=== PATIENT | female | born 1950 | race Caucasian/White ===

== ENCOUNTER 2022-10-10 06:21 | Inpatient (IN) ==
--- NOTE | 2022-09-21 14:16 | PAT Medication Instructions ---
Medication Instructions Date of Service September 21, 2022 Home Medications Medication Instructions Recorded amoxicillin 500 mg tablet 2,000 mg PO ONCE #4 tabs 11/24/21 amoxicillin 500 mg tablet 2,000 mg PO ONCE acetaminophen 650 mg tablet,extended release 1,300 mg PO Q8 allopurinol 300 mg tablet 300 mg PO HS coQ10 (ubiquinol) 200 mg capsule 200 mg PO QAM furosemide 20 mg tablet 20 mg PO QAM levothyroxine 137 mcg capsule 137 mcg PO QAM lisinopril 30 mg tablet 30 mg PO QAM metformin 500 mg tablet 1,000 mg PO BIDM multivitamin 1 tab PO QAM simvastatin 10 mg tablet 10 mg PO HS spironolactone 25 mg tablet 25 mg PO QAM verapamil 240 mg tablet,extended release 240 mg PO BID Continue as directed amoxicillin 500 mg tablet 2,000 mg PO ONCE STOP taking 2 weeks before surgery (or as soon as possible if surgery is within 2 weeks) coQ10 (ubiquinol) 200 mg capsule 200 mg PO QAM DO NOT take the morning of surgery furosemide 20 mg tablet 20 mg PO QAM lisinopril 30 mg tablet 30 mg PO QAM metformin 500 mg tablet 1,000 mg PO BIDM multivitamin 1 tab PO QAM spironolactone 25 mg tablet 25 mg PO QAM Take morning of surgery With a small sip of water, OTHERWISE NOTHING TO EAT OR DRINK AFTER MIDNIGHT: acetaminophen 650 mg tablet,extended release 1,300 mg PO Q8 levothyroxine 137 mcg capsule 137 mcg PO QAM verapamil 240 mg tablet,extended release 240 mg PO BID Take evening before surgery acetaminophen 650 mg tablet,extended release 1,300 mg PO Q8 allopurinol 300 mg tablet 300 mg PO HS metformin 500 mg tablet 1,000 mg PO BIDM simvastatin 10 mg tablet 10 mg PO HS verapamil 240 mg tablet,extended release 240 mg PO BID Other Notes If you have any questions please call us at [phone] or [phone] or [phone] or [phone]
--- NOTE | 2022-09-26 10:40 | Anesthesiology Consultation ---
Date of Service September 26, 2022 Assessment & Plan (1) Encounter for pre-operative examination: - Check BSG AM DOS - COVID screening: Per assessment on 09/26: No known COVID-19 positive contacts or current COVID-19 related symptoms. Travel screen negative. Patient vaccinated. At surgeon discretion if preop Covid testing being done. - Outpatient joint assessment: Pt currently scheduled for inpatient pathway. If surgeon requests review for outpatient joint pathway, patient is not recommended candidate for outpatient joint program from anesthesia standpoint. Chart Review Chart Review: Acceptable Risk for Surgery and Patient seen in Pre Admission Testing Teaching & Discussion Pre-Anesthesia Teaching/Discussion Notes: Instructed NPO after midnight before surgery,except medications with 15 cc of water. Medication instructions provided according to the PAT guidelines. History Surgery Operation Date: 10/10/22 10:40 Proposed Procedures p Left Total Hip Arthroplasty - Kwasi Hirsch MD Height/Weight Height: 5 ft 2 in Weight: 106.7 kg Allergies Allergy/AdvReac Type Severity Reaction Status Date / Time atenolol AdvReac Mild MUSCLE Verified 09/21/22 10:36 ACHES Medications Home Medications Medication Instructions Recorded Confirmed Last Taken amoxicillin 500 mg tablet 2,000 mg PO ONCE #4 tabs 11/24/21 09/21/22 Unknown acetaminophen 650 mg 1,300 mg PO Q8 09/21/22 09/21/22 Unknown tablet,extended release allopurinol 300 mg tablet 300 mg PO HS 09/21/22 09/21/22 Unknown coQ10 (ubiquinol) 200 mg capsule 200 mg PO QAM 09/21/22 09/21/22 Unknown furosemide 20 mg tablet 20 mg PO QAM 09/21/22 09/21/22 Unknown levothyroxine 137 mcg capsule 137 mcg PO QAM 09/21/22 09/21/22 Unknown lisinopril 30 mg tablet 30 mg PO QAM 09/21/22 09/21/22 Unknown metformin 500 mg tablet 1,000 mg PO BIDM 09/21/22 09/21/22 Unknown multivitamin 1 tab PO QAM 09/21/22 09/21/22 Unknown simvastatin 10 mg tablet 10 mg PO HS 09/21/22 09/21/22 Unknown spironolactone 25 mg tablet 25 mg PO QAM 09/21/22 09/21/22 Unknown verapamil 240 mg tablet,extended 240 mg PO BID 09/21/22 09/21/22 Unknown release Past Medical History Medical History Diabetes mellitus, type 2 Gout History of kidney stones Hyperlipidemia Hypertension Hypothyroidism Morbid obesity with BMI of 40.0-44.9, adult Osteoarthritis Sleep apnea CPAP (compliant) Exercise / Class Metabolic Activity III < 4 Walking/Shop/Light housework (uses 2 canes or walker ) Past Family History Family History Other No family history of adverse response to anesthesia Past Surgical History Surgical History History of colonoscopy History of ear surgery right ear laser surgery History of hysterectomy with bilateral oophorectomy History of left breast biopsy benign (marker in place) History of total right hip replacement History of wisdom tooth extraction Past Anesthesia History No Hx of Anesthesia Complications and No Family Hx of Anesthesia Complications History of PONV No Hx of PONV and Hx of Motion Sickness (+ boats) Social History Smoking Status: Never smoker Do You Dip or Chew Tobacco: No Hx Alcohol Use: No Hx Substance Use: No substance use type: does not use Review of Systems Patient denies chest pain, shortness of breath, fever, chills, cough, wheezing, palpitations. Physical Exam Vital Signs VITALS BP 155/87 P 82 TEMP 98.9 SP02 95%RA RESP 18 PHYSICAL Full cervical extension range of motion. Full TMJ range of motion. TMD 4 finger breaths Mallampati Score 3 (macroglossia) Dentition: missing molars, + several crowns Lungs: clear throughout to auscultation Cardiac: regular rate and rhythm, no murmurs noted Spine: normal Carotid arteries: negative bruit Extremities: no LE edema Lab Results Anesthesia Preop Results Results Anesthesia Widget: WBC 7.44 K/ul (4.8-10.8) 09/20/22 Hgb 13.5 g/dl (12.0-16.0) 09/20/22 Hct 40.2 % (37.0-47.0) 09/20/22 Plt 332 K/uL (130-400) 09/20/22 Na 135 mmol/L (136-145) L 09/26/22 K 3.9 mmol/L (3.5-5.1) 09/26/22 Cl 96 mmol/L (98-107) L 09/26/22 CO2 31 mmol/L (21-32) 09/26/22 BUN 10 mg/dl (6-23) 09/26/22 Creat 0.59 mg/dl (0.6-1.2) L 09/26/22 Glucose Level 130 mg/dl (70-99(Fasting)) H 09/26/22 PT 10.5 Seconds (9.0-12.0) 09/26/22 PTT 26.7 Seconds (21.0-31.0) 09/26/22 INR 1.0 (0.9-1.1) 09/26/22 HA1c 7.2 % (4.5-5.6) H 09/26/22 Blood Type O Positive 09/26/22 Antibody Screen NEGATIVE 09/26/22 Testing Electrocardiogram Date: 09/26/22 NSR at 76bpm. Chest X-Ray Date: 09/26/22 FINDINGS: Small linear densities at the left lung base persist and favor scarring. Otherwise, the lungs are clear. The heart is normal in size. No pleural effusions. No pneumothorax. Degenerative changes noted within the thoracic spine and shoulders. IMPRESSION: No acute process. COVID-19 Risk Screen Screening Information COVID-19 Screen Date: 09/26/22 Exposure 21 Days Family/Household +COVID Last 21 Days: No Exposure 10 Days Any COVID Exposure Last 10 Days: No Symptoms Last 10 Days Experienced COVID Sx Last 10 Days: No + COVID 0-90 Days COVID + in Last 0-90 Days: No
[~2022-10-10 06:21] MED LIST: ACETAMINOPHEN 500 MG TAB PO SCH; BUPIVACAINE LIPOSOME/PF 266 MG, BUPIVACAINE/EPINEPHRINE 50 ML, SODIUM CHLORIDE 0.9% PF ... INFIL SCH; CeleBREX 200 MG CAP PO SCH; FAMOTIDINE 20 MG TAB PO SCH; LR 500ML BOLUS, THEN 15ML/HR IV SCH; LR 60ML/HR IV SCH; METOCLOPRAMIDE HCL 10 MG TABLET PO SCH; TRANEXAMIC ACID 1,000 MG **IV Pre-op IV SCH; ceFAZolin 2000MG 2,000 MG/15 ML SYR IV SCH
[2022-10-10] MEDS ORDERED: BUPIVACAINE 0.5 % 5 MG/1 ML PF 10ML VIAL ONE (06:30)
--- NOTE | 2022-10-10 06:57 | History & Physical Bridge Note ---
Date of Service October 10, 2022 History & Physical Bridge Note I have examined the patient, reviewed the History & Physical and in the interval since the performance of the History & Physical I have noted the following changes of clinical significance: no changes noted
[2022-10-10] MEDS ORDERED: MIDAZOLAM HCL 1 MG/ML 2ML VIAL ONE (07:40)
[2022-10-10] MEDS ORDERED: LIDOCAINE 2% 2 ML VIAL/AMP(20MG/ML) INFIL ONE (07:40)
[2022-10-10] MEDS ORDERED: KETAMINE 50 MG/5 ML SYRINGE ONE (07:40)
[2022-10-10] MEDS ORDERED: PROPOFOL IV EMULSION 10 MG/ML 20 ML VIAL IV ONE ×3 (07:40→09:47)
[2022-10-10] MEDS ORDERED: ATROPINE SULFATE 0.1 MG/ML 10ML SYR IV PRN (08:01)
[2022-10-10] MEDS ORDERED: fentaNYL citrate PF 100 MCG/2 ML VIAL IV PRN (08:01)
[2022-10-10] MEDS ORDERED: ONDANSETRON INJ 2 MG/ML 2 ML VIAL IV PRN ×2 (08:01→11:14)
[2022-10-10] MEDS ORDERED: ePHEDrine sulfate 50 MG/ML AMP IV PRN (08:01)
[2022-10-10] MEDS ORDERED: BUPIVACAINE/EPINEPHRINE 0.5% MPF 1:200,000 30 ML VIAL ONE (08:22)
[2022-10-10] MEDS ORDERED: GLYCOPYRROLATE 0.2 MG/ML VIAL ONE (08:55)
[2022-10-10] MEDS ORDERED: ePHEDrine sulfate 50 MG/ML SYR ONE (09:16)
[2022-10-10] MEDS ORDERED: KETOROLAC 30 MG/ML VIAL ONE (09:47)
--- NOTE | 2022-10-10 10:28 | Operative Report ---
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 Secondary arthritic changes. A fairly large hip joint effusion. Fluids 1500 cc Specimens Left femoral head sent for pathology Anesthesia Type Spinal MAC Complications none Disposition Accompanied Patient To Recovery: No Indications Patient 72-year-old female has had about a 6-month history of markedly increased left hip pain discomfort to the point where she was having trouble even get around with use of a cane or assistance device. X-rays show progressive hip arthritic changes. As she had an MRI suggested a vast necrosis. She failed all conservative measures and elected proceed with total hip arthroplasty. Description of Procedure Operative implants consist of: 1. Biomet G7 size 48 mm acetabular shell. 2. [place] hole eliminator. 3. 6.5 cancellous acetabular screws 1 at 35 mm length 1 to 25 mm length. 4. Highly cross-linked polyethylene liner with a 48 mm outer diameter, 32 mm diam with a randolph placed inferior and posterior. 5. DePuy [place] size 10 KLA femoral stem. 6. +5/32 mm ceramic articular ball. The patient was taken the operating, identified, placed on the operating table supine position but all contact areas were properly padded. IV antibiotics tried by anesthesia team. Spinal anesthetic had been implemented holding area. Brush catheter was placed in sterile fashion. The patient was then placed in the right lateral decubitus position. An axillary roll was placed. A [place] hip positioner was used for positioning. All contact areas were meticulously padded. Left hip and leg were then prepped and draped in usual sterile fashion. A posterolateral approach to the left hip was then performed through a curvilinear incision centered over the greater trochanter. Sharp dissection was carried through subcutaneous tissue down below the IT band gluteal fascia. The IT band gluteal fascia/longitudinally in line with skin incision. The underlying greater bursa was excised. It was fairly fatty and there was quite a bit of fat in this layer. The piriformis and external rotators and the pos terior hip joint capsule were then released from the posterior aspect of the hip as a single layer. Great care was taken throughout the procedure protect the sciatic nerve at all times. The hip was then internally rotated and dislocated. Femoral neck osteotomy cut was made with Final Cut 10 mm above the lesser trochanter. Femoral head was removed and sent for pathology. The femur was retracted anteriorly. Attention drawn the acetabulum. The acetabular labrum was excised. There are multiple loose pieces which were removed from the acetabulum. The pulmonary fat was excised. Sequential reaming the acetabular was then performed again with a size 43 and progressing up to a 47. We did ream a little bit with a 48 reamer and then placed a 48 mm cup in about 40 degrees lateral opening and 20 degrees of anteversion. Small anterior osteophyte was removed. Trial liner was placed. Attention drawn the femur. The proximal femur was entered with a cookie cutter followed by canal finder. I then broached beginning with size 8 and progressing up to a 10. Her cancellous bone was not real strong but we got good fixation and stability at the 10 stem. I did not think we could safely put a larger stem in. We trialed the hip and the +5 articular ball provide full stability to the hip, appropriate leg lengths and the soft tissue tension. We elect to place these implants. I did elect to place a randolph inferior and posterior to maximize her stability in flexion and internal rotation. All trial implants were removed. An apex hole limiter was placed. Highly cross-linked polyethylene liner with a randolph placed inferior posterior were placed. Size 10 KLA femoral stem was impacted in position. +5/32 mm ceramic articular ball was placed. Hip was located and once again found to be stable. Attention drawn toward closing. The wound was irrigated coconuts pulsatile lavage solution. We did inject locally with 60 cc of half percent Marcaine with epinephrine. The posterior capsule and external rotators then repaired through drill holes in the posterior trochanter as a single layer with #2 Tycron suture. The IT band and gluteal fascia then closed in 1 PDS suture running fashion. The subcutaneous tissues were closed with 2 layers with a deep layer #2 Vicryl suture and subcutaneous tissues with 2 Dexon suture in a buried interrupted fashion. Skin was closed with skin elizabeth. A Prevena VAC dressing was then applied due to the fairly thick soft tissue envelope. The patient was then transferred to the recovery room in stable condition. Patient tolerated the procedure well and there were no complications. [place], my physician assistant strength coach, was present for the entire procedure. His assistance was essential and required for appropriate patient positioning, prep ping and draping, surgical exposure, performing the technical details of the operation, placement the implants, closure of the wound, and placement of the sterile bandage. I attest to the content of the Intraoperative Record and any orders documented therein. Any exceptions are noted below.
--- NOTE | 2022-10-10 11:10 | XRay Report ---
XR hip 1V LT w pelvis CLINICAL HISTORY: IN PACU - Post Surgical TECHNIQUE: 2 views of the left hip and single frontal view of the pelvis were obtained. Comparison: Comparison is made to pelvic radiograph 03/16/2019 FINDINGS: Patient is status post total hip arthroplasty with expected postsurgical changes including soft tissu e swelling and subcutaneous emphysema. IMPRESSION: Expected postoperative appearance status post placement of total hip arthroplasty. ACT 112: Negative or not required by law. Electronically signed by: Kyler Dunham M.D. 10/10/2022 11:08 AM
[2022-10-10] MEDS ORDERED: DEXTROSE 50% 50 ML SYRINGE IV PRN (11:14)
[2022-10-10] MEDS ORDERED: HYDROmorphone INJ 0.5 MG/0.5 ML SYR IV PRN (11:14)
[2022-10-10] MEDS ORDERED: CARBOHYDRATES FOR HYPOGLYCEMIA PO PRN (11:14)
[2022-10-10] MEDS ORDERED: ALUMINUM/MAGNESIUM SUSP 30 ML UDC PO PRN (11:14)
[2022-10-10] MEDS ORDERED: GLUCOSE 10 TAB/TUBE PO PRN (11:14)
[2022-10-10] MEDS ORDERED: bisacodyL 10 MG SUPP PR PRN (11:14)
[2022-10-10] MEDS ORDERED: MAGNESIUM HYDROXIDE SUSP 30 ML UDC PO PRN (11:14)
[2022-10-10] MEDS ORDERED: NALOXONE HCL 0.4 MG/1 ML VIAL/CARP IV PRN (11:14)
[2022-10-10] MEDS ORDERED: PHARMACY GLYCEMIC MGMT CONSULT PRN (11:14)
[2022-10-10] MEDS ORDERED: GLUCAGON FOR INJ 1 MG VIAL SQ PRN (11:14)
[2022-10-10] MEDS ORDERED: METOCLOPRAMIDE HCL INJ 5 MG/ML 2 ML VIAL IV PRN (11:14)
[2022-10-10] MEDS ORDERED: GLUCOSE 40% GEL 15 GM TUBE PO PRN (11:14)
[2022-10-10] MEDS ORDERED: LANTUS PER UNIT CHARGE SC ONE (11:30)
[2022-10-10] MEDS: SODIUM CHLORIDE 0.9% 1000ML 1,000 ML IV SCH ×2 (11:38→22:18)
--- NOTE | 2022-10-10 11:39 | Pharmacy Report ---
Pharmacy Glycemic Short Note 2 - Date of Service October 10, 2022 - Glycemic Short BSG Results (Last 24 hours): 10/10/22 10/10/22 06:57 10:16 POC Glucose 149 H 197 H OUTPATIENT ANTIDIABETIC REGIMEN: * Metformin 1 g PO BIDM HbA1c: 7.2% (09/26/22) ASSESSMENT: * JUSTIN is a 72 year old female POD #0 s/p left total hip arthroplasty * No perioperative or ongoing steroids ordered * Patient w/ reasonable outpatient glycemic control on metformin only * Preop BSG of 149 mg/dL and postop BSG of 197 mg/dL - unclear reason for hyperglycemia besides surgical stress PLAN FOR INPATIENT GLYCEMIC CONTROL: * Hold outpatient oral diabetes medication * Consider restarting tomorrow AM * Basal insulin * Lantus 20 units SC x 1 (~0.2 unit/kg) * Bolus insulin * NovoLog per scale ACHS or Q6hrs while NPO * Goal Range: Low 110 mg/dL - High 140 mg/dL * Correction Factor: 25 mg/dL/unit * Nutritional / Prandial insulin per carb ratio of 1 unit per 8 grams CHO consumed
[2022-10-10] MEDS: KETOROLAC TROMETHAMINE 15 MG/ML VIAL IV SCH ×2 (11:48→17:25)
[2022-10-10] MEDS: INSULIN ASPART PER UNIT CHARGE SC SCH ×3 (12:31→20:36)
--- NOTE | 2022-10-10 13:47 | Progress Notes ---
SUBJECTIVE: A 72-year-old female postop from a left total hip replacement. She is doing well. Real ly not having any pain yet. No chest pain or shortness of breath. Not feeling dizzy or lightheaded. OBJECTIVE: VITAL SIGNS: Temperature 36.4. Vital signs are stable. GENERAL: Shows a pleasant, elderly female. She is sitting up in bed, eating lunch and looks comfort able. LUNGS: Clear to auscultation. HEART: Has a regular rate and rhythm. ABDOMEN: Soft, nontender, nondistended. EXTREMITIES: Grossly neurovascularly intact except as follows. Examination of the left leg reveals the dressing to be clean, dry and intact. Leg lengths are equal. Thigh is soft and supple. She can dorsiflex and plantarflex her foot appropriately. X-RAYS: X-ray of the left hip from recovery room are reviewed. It shows left uncemented hip replace ment. Components looked to be in good position. No signs of problems. ASSESSMENT: A 72-year-old female postop from a left hip replacement, doing well. Hip is located. S he is neurologically intact. PLAN: 1. DVT prophylaxis includes thigh-high TEDs, SCDs, and aspirin twice daily. 2. PT/OT, weightbear as tolerated. Left total hip protocol. 3. Pain control. She is doing okay with current pain regimen. 4. Disposition: She is hoping to be discharged to [facility] for a brief rehab stay. She live s by herself and it is certainly not safe for her to be going home at this point. We will get family welfare social work professor working on that. Job ID: [id number]
[2022-10-10] MEDS: ACETAMINOPHEN 500 MG TAB PO SCH ×2 (13:54→22:18)
--- NOTE | 2022-10-10 14:00 | Anesthesiology Progress Note ---
Date of Service October 10, 2022 Anesthesia Post Procedure Vital Signs Vital Signs: Temp Pulse Pulse Resp BP BP Pulse Ox 10/10/22 13:15 81 18 151/81 H 94 10/10/22 12:15 88 18 157/75 H 95 10/10/22 11:45 36.4 C L 78 16 140/72 95 10/10/22 11:15 36.5 C 82 16 141/69 H 96 10/10/22 11:00 36.5 C 74 16 145/68 H 97 10/10/22 10:50 73 17 128/68 95 10/10/22 10:40 71 18 130/63 97 10/10/22 10:30 72 17 131/62 98 10/10/22 10:20 74 20 135/58 L 99 10/10/22 10:10 36.6 C 72 16 132/63 95 10/10/22 06:58 37.3 C 82 20 178/97 H 96 O2 Del Method O2 Flow Rate 10/10/22 13:15 Room Air 10/10/22 12:15 Room Air 10/10/22 11:45 Room Air 10/10/22 11:15 Nasal Cannula 2 10/10/22 11:00 Nasal Cannula 2 10/10/22 10:50 Nasal Cannula 2 10/10/22 10:40 Room Air 10/10/22 10:30 Oxymask 4 10/10/22 10:20 Oxymask 4 10/10/22 10:10 Oxymask 6 10/10/22 06:58 Room Air Pain Intensity Left Hip: Pain Intensity: 5 Transfer of Care Handoff Completed per policy Notes Mental Status: alert / awake / arousable and participated in evaluation Patient Amnestic to Procedure: Yes Nausea / Vomiting: adequately controlled Pain: adequately controlled Airway Patency, RR, SpO2: stable & adequate BP & HR: stable & adequate Hydration State: stable & adequate Neuraxial Anesthesia: was administered and sensory block is resolving Anesthetic Complications: no major complications apparent and Pt Satisfied with anesthetic care
[2022-10-10] MEDS: ceFAZolin 2000MG 2,000 MG/15 ML SYR IV SCH (15:22)
[2022-10-10] MEDS: traMADol HCL 50 MG TABLET PO PRN (16:29)
[2022-10-10] MEDS ORDERED: TRANEXAMIC ACID / 0.7% NACL 1,000 MG/100 ML BAG IV SCH (16:30)
[2022-10-10] MEDS: ASCORBIC ACID 500 MG TAB PO SCH (16:30)
[2022-10-10] MEDS: DOCUSATE SODIUM 100 MG CAP PO SCH (20:30)
[2022-10-10] MEDS: VERAPAMIL HCL 240 MG TABCR PO SCH (20:30)
[2022-10-10] MEDS ORDERED: allopurinoL 300 MG TAB PO SCH (21:00)
[2022-10-10] MEDS ORDERED: SENNA 8.6 MG TAB PO SCH (21:00)
[2022-10-10] MEDS ORDERED: SIMVASTATIN 10 MG TAB PO SCH (21:00)
[2022-10-10] MEDS ORDERED: MELATONIN 3 MG TAB PO SCH (21:00)
[2022-10-10] MEDS: ASPIRIN 81 MG ECTAB PO SCH (22:17)
[2022-10-11] MEDS: KETOROLAC TROMETHAMINE 15 MG/ML VIAL IV SCH ×3 (01:52→11:27)
[2022-10-11] MEDS: ceFAZolin 2000MG 2,000 MG/15 ML SYR IV SCH (01:52)
[2022-10-11] MEDS: ACETAMINOPHEN 500 MG TAB PO SCH (05:48)
[2022-10-11 06:45] LABS: Basophils # (auto) 0.02 K/uL (0-0.2); Basophils % (auto) 0.3 %; Eosinophils # (auto) 0.13 K/uL (0-0.50); Eosinophils % (auto) 1.7 %; Hematocrit (blood only) 29.9 % (37.0-47.0); Hemoglobin 10.3 g/dl (12.0-16.0); Immature Granulocytes # (auto) 0.06 K/uL (0.01-0.20); Immature Granulocytes % (auto) 0.8 %; Lymphocytes # (auto) 0.51 K/uL (1.2-3.4); Lymphocytes % (auto) 6.7 %; Mean Corpuscular Hemoglobin 31.5 pg (25.0-34.0); Mean Corpuscular Hgb Conc 34.4 g/dL (32.0-36.0); Mean Corpuscular Volume 91.4 fL (80.0-100.0); Mean Platelet Volume 9.6 fL (9.4-12.4); Monocytes # (auto) 0.74 K/uL (0.11-0.59); Monocytes % (auto) 9.7 %; Neutrophils # (auto) 6.14 K/uL (1.40-6.50); Neutrophils % (auto) 80.8 %; Platelet Count 235 K/uL (130-400); RDW Coefficient of Variation 13.8 % (11.5-14.5); RDW Standard Deviation 46.6 fL (36.4-46.3); Red Blood Count 3.27 M/uL (4.20-5.40)
--- NOTE | 2022-10-11 07:25 | Progress Notes ---
SUBJECTIVE: A 72-year-old white female postoperative day 1 from a left hip replacement done for AVN. She has done quite well. Denies any chest pain or shortness of breath. Some moderate hip pain. OBJECTIVE: VITAL SIGNS: Temperature 37.0. Vital signs are stable. GENERAL: Shows a pleasant, elderly female. She is sitting on her bedside chair, looks comfortable. EXTREMITIES: Examination of the left hip reveals a Prevena VAC dressing to be in place. Very minima l swelling. Leg lengths are equal. Hip is located. NEUROLOGIC: She is neurologically intact. LABORATORY DATA: Hemoglobin 10.3. Hematocrit 29.9. Electrolytes are pending. ASSESSMENT: A 72-year-old white female postoperative day 1 from a left hip replacement, doing pretty well. Pain is controlled. Hip is located. She is neurologically intact. PLAN: 1. DVT prophylaxis includes thigh-high TEDs, SCDs, and aspirin twice a day. 2. PT/OT, weightbear as tolerated. Left total hip protocol. 3. Pain control, doing okay with current pain regimen. 4. Disposition: She is hoping to be discharged to rehab. She is medically stable. We will see if we can make arrangements for that today. Job ID: [id number]
[2022-10-11 07:48] LABS: Calcium 8.3 mg/dl (8.6-10.3); Potassium 3.4 mmol/L (3.5-5.1)
[2022-10-11] MEDS: traMADol HCL 50 MG TABLET PO PRN (07:53)
[2022-10-11 07:54] LABS: BUN Creatinine Ratio 16.7 (10-20); Creatinine Clr Calc Pharmacy 96.4 ml/min; Est GFR (African American) 105.5 ml/min; Est GFR (Non-African American) 91.1 ml/min
[2022-10-11] MEDS: INSULIN ASPART PER UNIT CHARGE SC SCH ×2 (08:43→12:35)
[2022-10-11] MEDS ORDERED: metFORMIN HCL 500 MG TAB PO SCH (08:45)
[2022-10-11] MEDS: VERAPAMIL HCL 240 MG TABCR PO SCH (08:55)
[2022-10-11] MEDS: DOCUSATE SODIUM 100 MG CAP PO SCH (08:55)
[2022-10-11] MEDS: ASCORBIC ACID 500 MG TAB PO SCH (08:55)
[2022-10-11] MEDS: ASPIRIN 81 MG ECTAB PO SCH (08:55)
[2022-10-11] MEDS ORDERED: NON-FORMULARY MEDICATION (Multivitamin Tablet) PO SCH (09:00)
[2022-10-11] MEDS ORDERED: LEVOTHYROXINE SODIUM 137 MCG TABLET PO SCH (09:00)
[2022-10-11] MEDS ORDERED: NON-FORMULARY MEDICATION (Docusate Sodium [Stool Softener] 100 mg Tablet) PO SCH (09:00)
[2022-10-11] MEDS ORDERED: lisinopril 10 MG TAB PO SCH (09:00)
[2022-10-11] MEDS ORDERED: FUROSEMIDE 20 MG TAB PO SCH (09:00)
[2022-10-11] MEDS ORDERED: MULTIVITAMIN TAB PO SCH (09:00)
[2022-10-11] MEDS ORDERED: SPIRONOLACTONE 25 MG TAB PO SCH (09:00)
[2022-10-11] MEDS ORDERED: NON-FORMULARY MEDICATION (Coq10 (Ubiquinol) 200 mg Capsule) PO SCH (09:00)
--- NOTE | 2022-10-11 09:44 | Pharmacy Report ---
Glycemic Ortho Sign Off Note - Date of Service October 11, 2022 - Scope Glycemic Pharmacist consulted for glycemic control and to write orders per [facility] inpatient glycemic control protocol. - Objective Accuchecks BSG (last 24hrs):: 10/10/22 10/10/22 10/10/22 10:16 12:02 16:52 Glucose POC Glucose 197 H 184 H 136 H 10/10/22 10/11/22 10/11/22 20:27 06:24 07:05 Glucose 149 H POC Glucose 193 H 191 H - Assessment * Pt is maintained on an oral antidiabeticagentas anoutpatient with excellent control per recent A1c * Will resume Metformin today * Low stress weight based insulin dosing appropriate since patient has minimal risk factors for insulin resistance (i.e. no steroids). * Appropriate to DC insulin and resume outpatient antidiabetic regimen at discharge * Goal is to maintain BSGs <200 mg/dl (ideally <150 mg/dl) to prevent post op complications - Plan For Inpatient Glycemic Control * Resume Metformin 1000 mg PO BIDM this morning * Basal insulin * Not needed based on A1c, pre-op BSGs, and minimal risk factors for insulin resistance * Bolus insulin * Utilize low stress weight based NovoLog parameters per scale ACHS * Correction factor only. No carb ratio. * Pharmacy has entered glycemic orders and is signing off of the glycemic consult. We will no longer be making adjustments to inpatient regimen. Please feel free to re-consult if needed. Thank you.
--- NOTE | 2022-10-13 06:15 | Discharge Summary ---
Date of Service October 13, 2022 Discharge Data Procedures Performed Operation Date: 10/10/22 08:40 Actual Procedures p Left Total Hip Arthroplasty, Uncemented(Left) - Kwasi Hrisch MD Hospital Course (1) S/P total left hip arthroplasty: This is a 72 year old patient admitted on 10/10/22 and underwent total hip arthroplasty. She tolerated the procedure well and there were no complications. Transferred to the PACU post op and later to the orthopedic floor for further care. She was given ancef for antibiotic prophylaxis. She was also given MADISON stockings, SCDs, and aspirin for DVT prophylaxis. Hemoglobin, hematocrit, and vital signs were monitored during her hospital stay and remained stable. Did not require any blood transfusions. There were no complications during her hospital stay. By post op day #1 the patient was tolerating a diabetic diet, pain was reasonably controlled with oral pain medicine, and she was participating in physical therapy. On post op day #1 the patient was discharged to a rehab facility. She was given printed discharge instructions including prescriptions for extra strength tylenol, aspirin, and tramadol. Continue hip precautions. Continue physical therapy, weight bearing as tolerated. Continue MADISON stockings. Follow up approximately 2 weeks post op or sooner if there are problems or concerns. Coding Level of Care Code None Diagnoses S/P total left hip arthroplasty Z96.642
== END 2022-10-11 13:04 | DRG 470 ==
LOC: ASU 06:21 → 3E 10:20
DX: M16.12 Unilateral primary osteoarthritis, left hip; E66.9 Obesity, unspecified; Z88.8 Allergy status to other drugs, medicaments and biological substances; Z79.84 Long term (current) use of oral hypoglycemic drugs; M87.052 Idiopathic aseptic necrosis of left femur; I10 Essential (primary) hypertension; J45.909 Unspecified asthma, uncomplicated; E11.9 Type 2 diabetes mellitus without complications; Z79.890 Hormone replacement therapy; Z96.641 Presence of right artificial hip joint; E03.9 Hypothyroidism, unspecified